=== PATIENT | female | born 1990 | race Caucasian/White ===

== ENCOUNTER 2024-10-28 10:04 | Emergency (ER) | payer OTHER, SELFPAY ==
[2024-10-28 10:38] VITALS: BP 119/57; PULSE 76; RESP 20; TEMP 36.9; O2SAT 100
--- NOTE | 2024-10-28 11:27 | ED.URI ---
HPI - URI/Sore Throat General Chief Complaint: Upper Respiratory Infection Stated Complaint: cough/chest tight/headache Time Seen by Provider: 10/28/24 11:27 Source: patient, RN notes reviewed and old records reviewed Mode of arrival: ambulatory Limitations: no limitations History of Present Illness HPI Narrative: 34-year-old female to Express Care with complaint of cough, congestion, headache, body ache, subjective fever, sinus pain since Sunday. Patient denies GI complaints, allergies, shortness of breath, difficulty swallowing. Patient has attempted to treat at home with Tylenol. Patient able to tolerate fluids by mouth. Patient resting uncomfortably in exam room, tearful, appears acutely ill and tired. Respirations even and nonlabored. Patient able to speak in complete sentences without difficulty. Patient in no acute distress. Related Data Home Medications ?Medication ?Instructions ?Recorded ?Confirmed ?Last Taken ?Type buprenorphine 8 mg-naloxone 2 mg film 10/28/24 Unknown History sublingual film Allergies Allergy/AdvReac Type Severity Reaction Status Date / Time No Known Allergies Allergy Verified 10/28/24 10:47 Review of Systems Review of Systems: All systems reviewed & are unremarkable except as noted in HPI and below Constitutional: Constitutional: Reports as per HPI, Reports body ache(s), Reports fever(s) ( Subjective) and Reports headache(s) Eyes: Eyes: Reports no additional eye complaints ENT: Reports system reviewed and no additional complaints, except as documented Cardiovascular: Cardiovascular: Reports no additional cardiovascular complaints, Denies chest pain and Denies dyspnea Respiratory: Respiratory: Reports as per HPI, Reports chest congestion, Reports cough and Denies dyspnea Musculoskeletal: Musculoskeletal: Reports no additional musculoskeletal complaints Neurologic: Reports system reviewed and no additional complaints, except as documented Psychiatric: Psychiatric: Reports no additional psychiatric complaints PMFSH Comments At the time of my signature, I reviewed and agree with the nursing past medical, surgical, social, and family history. There is no relevant family history pertinent to the patient complaint. Exam Const: General: cooperative, no acute distress, well developed, alert, ill appearing acutely, tired appearing, uncomfortable, well groomed and well nourished Nutritional Appearance: well nourished Orientation/consciousness: patient oriented x3 Limitations: no limitations HENMT: Head: normal to inspection Ears: external ears normal and TM abnormal with fluid behind the TM bilateral Face/Nose/Sinus: Normal external nose present, Normal nares present, Abnormal mucous membranes and turbinates present boggy and erythematous, No erythema, No edema and sinus tenderness Face and sinus: normal facial exam, no erythema and no edema Mouth: Yes Normal oral and palatal mucosa present Throat: postnasal drainage ( purulent) Eyes: General: appearance normal, both eyes and all related structures Neck: Neck: normal visual inspection, full ROM and no meningeal signs Lymphatic: no lymphadenopathy noted and no lymphedema noted Chest: Chest palpation & inspection: normal inspection of the chest Resp: Effort & Inspection: normal respiratory effort and able to speak in complete sentences Auscultation: clear to auscultation bilaterally Cardio: Jugular venous distension: no JVD Rate: regular rate Rhythm: regular rhythm Back/Spine/Pelvis: Cervical Spine: cervical ROM normal Skin: General skin exam: normal color, no rashes or lesions noted and turgor normal Neuro: General: patient oriented x3, gait normal, moves all extremities and no meningeal signs Speech: normal speech Gait exam (Neuro): Normal gait present Extrem: General: normal to inspection, full ROM and capillary refill normal Psych: Appearance: grossly normal and well kempt Course Course Emergency Course: Some parts of this dictation were generated by voice recognition software and may contain typographical and/or grammatical inaccuracies. Level of Care: Express Care Visit Vital Signs Vital signs: Vital Signs Temperature 36.9 C 10/28/24 10:38 Pulse Rate 76 10/28/24 10:38 Respiratory Rate 20 10/28/24 10:38 Blood Pressure 119/57 L 10/28/24 10:38 Pulse Oximetry 100 10/28/24 10:38 Oxygen Delivery Room Air 10/28/24 10:38 Temperature 36.9 C 10/28/24 10:38 Pulse Rate 76 10/28/24 10:38 Respiratory Rate 20 10/28/24 10:38 Blood Pressure 119/57 L 10/28/24 10:38 Pulse Oximetry 100 10/28/24 10:38 Oxygen Delivery Room Air 10/28/24 10:38 reviewed MDM - URI/Sore Throat MDM Narrative Medical decision making narrative: 34-year-old female to Express Care with complaint of cough, congestion, headache, body ache, subjective fever, sinus pain since Sunday. Patient denies GI complaints, allergies, shortness of breath, difficulty swallowing. Patient has attempted to treat at home with Tylenol. Patient able to tolerate fluids by mouth. Patient resting uncomfortably in exam room, tearful, appears acutely ill and tired. Respirations even and nonlabored. Patient able to speak in complete sentences without difficulty. Patient in no acute distress. on exam, bilateral TMs with fluid, bilateral nares boggy and erythematous. Posterior oropharynx erythematous with Purulent postnasal drainage. Sinus tenderness. Patient is sitting comfortably in exam room nontoxic in appearance. Patient appropriate for outpatient treatment and follow-up. Discharge instructions reviewed with patient, as well as provided in writing per nursing staff. The instructions also include specific and strict return/GO TO THE ER as well as f/u information. All questions have been answered, and the patient deny any further questions with discharge and discharge plan. Some parts of this dictation were generated by voice recognition software and may contain typographical and/or grammatical inaccuracies. Differential Diagnosis Differential diagnosis: Likely upper respiratory infection, croup, otitis media, sinusitis, viral infection, bronchitis, influenza and pharyngitis Discharge Plan Discharge Clinical Impression: Acute bacterial sinusitis, Cough Patient Disposition: Home, Self-Care Condition: Stable Instructions: Antibiotic Form, Sinusitis (ED) Additional Instructions: -Alternate Tylenol and Motrin per package directions for fever or pain. -Antihistamine medication such as Benadryl at night and Zyrtec/Claritin/Danika during the day can help improve symptoms. -Use Flonase twice a day for 5 days then daily to help reduce the inflammation and dry up your sinuses. -You can also use Sudafed or Mucinex. Be sure to drink plenty of water with these medications at least 8 ounces with every dose and it is important to drink 8 to 10 glasses of water per day. Water is a natural decongestant -Eat and drink things that are easy to swallow, like tea or soup, or popsicles. -Oral rinses such as: Salt water gargles and/or may use topical anesthetic (eg. Chloraseptic spray) or lozenges to relieve dryness or throat pain). -Frequent hand washing or hand glass technologist is one of the best ways to prevent spread of infection. -Using a vaporizer or humidifier at night will also help thin secretions and help with coughing up phlegm. -Follow up with primary care provider in 2-3 days if condition is not improving; or seek ER visit if you have trouble breathing, cannot drink enough fluids, have muffled voice, difficulty opening your mouth, or severe swelling. Patient Language: British Prescriptions: New azithromycin 250 mg tablet 250 mg PO DAILY Qty: 6 0RF Rx Instructions: 250 mg orally. Take TWO tablets today, then one tablet daily for 4 days. amoxicillin 875 mg tablet 875 mg PO Q12H Qty: 20 0RF No Action buprenorphine-naloxone 8-2 mg film Follow-up/Referrals: PHYSICIAN,RESIDENTIAL PROGRAM WORKER [Primary Care Provider] - Stand Alone Forms: Work/School Release IP
== END 2024-10-28 11:45 | disposition home or self-care (01) ==
PROVIDERS: Emergency Provider Nurse Practitioner Family
DX: J01.90 Acute sinusitis, unspecified (principal); R05.9 Cough, unspecified
CPT/HCPCS: 99203; G0463